=== PATIENT | female | born 1935 | race African-American/Black ===

== ENCOUNTER 2016-10-23 07:44 | Inpatient (IN) | payer OTHER ==
[~2016-10-23] VITALS: Ht 158.8 cm; Wt 68.2 kg
[~2016-10-23 07:44] MED LIST: ADULT LOW DOSE81 M1 PO; ELIQUIS5 MG PO; HYDROCHLOROTHIA25 MG PO; LABETALOL HCL100 MG PO; LOPRESSOR50 MG PO; NORVASC5 MG PO; PRAVASTATIN SOD20 MG PO; ZENPEP DR 10,01 EACH
[2016-10-23 08:44] LABS: HEMATOCRIT 38.9 % (36.0-46.0); MCH 30.7 PG (29.0-34.0); MCHC 34.4 G/DL (30.0-36.0); MEAN PLAT.VOLUME 11.1 uM^3 (9.5-12.4); PLATELET COUNT 204 K/uL (156-360); RBC DIS.WIDTH-CV 13.2 % (11.8-14.6); RBC DIS.WIDTH-SD 43.6 % (39-53); RED BLOOD COUNT 4.37 M/uL (3.80-5.20); WHITE BLOOD COUNT 13.8 K/uL (4.1-10.2)
[2016-10-23 08:53] LABS: CHLORIDE 105 mEq/L (99-109)
[2016-10-23 08:54] LABS: SODIUM 142 mEq/L (136-147)
[2016-10-23 08:56] LABS: GLUCOSE 184 mg/dL (70-99)
[2016-10-23 08:57] LABS: ANION GAP 15 MEQ/L (2-14)
[2016-10-23 08:58] LABS: TOTAL BILIRUBIN 1.1 mg/dL (0.0-1.0)
[2016-10-23 08:59] LABS: ALKALINE PHOSPHATASE 150 IU/L (3-129)
[2016-10-23 09:00] LABS: GFR ESTIMATE (CALCULATED) > 59 mL/min/
[2016-10-23 09:01] LABS: UREA NITROGEN (BUN) 16 mg/dL (9-23)
[2016-10-23 09:03] LABS: CREATINE KINASE 108 IU/L (1-294); LIPASE 34 U/L (1.0-51.0)
[2016-10-23 09:05] LABS: TROP-I INTERPRETATION NEGATIVE; TROPONIN-I < 0.01 ng/mL (0.0-0.30)
[2016-10-23 09:09] LABS: ADD MIUA? YES; BILIRUBIN NEGATIVE; BLOOD NEGATIVE; COLOR STRAW ((YELLOW)); GLUCOSE (STRIP) 150; KETONES 5; LEUKOCYTES NEGATIVE; NITRITE NEGATIVE; PROTEIN (STRIP) 100; SPECIFIC GRAVITY 1.009 (1.000-1.030); UROBILINOGEN 0.2 MG/DL (0.2-1.0)
[2016-10-23 09:20] LABS: BACTERIA NONE SEEN /HPF; EPITHELIAL CELLS RARE /HPF; MUCUS NONE SEEN /LPF; RED BLOOD CELLS 0-5 /HPF (0-5); UCUL ADDED? NO; WHITE BLOOD CELLS 0-5 /HPF (0-5)
[2016-10-23 15:43] VITALS: BP 151/73
[2016-10-23 20:43] VITALS: BP 144/72
[2016-10-23 23:47] VITALS: BP 169/113
[2016-10-24] VITALS (8 sets, daily range): BP systolic 121–196; BP diastolic 69–90
[2016-10-24 05:52] LABS: EOSINOPHIL (%) 0 % (0-5); HEMATOCRIT 46.3 % (36.0-46.0); IMMATURE GRANULOCYTE (%) 0.5 % (0.0-0.7); IMMATURE GRANULOCYTE COUNT 0.1 K/uL; INSTRUMENT ABS NEUTROPHIL CT 10.1 K/uL; LYMPHOCYTE COUNT 0.8 K/uL (1.0-2.8); MCH 30.3 PG (29.0-34.0); MCHC 34.3 G/DL (30.0-36.0); MCV 88.4 FL (83-99); MEAN PLAT.VOLUME 11.6 uM^3 (9.5-12.4); MONOCYTE (%) 7.6 % (3-12); MONOCYTE COUNT 0.9 K/uL (0-0.8); NEUTROPHIL (%) 84.8 % (45-76); NEUTROPHIL COUNT 10.1 K/uL (1.8-6.4); PLATELET COUNT 145 K/uL (156-360); RBC DIS.WIDTH-CV 13.9 % (11.8-14.6); RBC DIS.WIDTH-SD 44.7 % (39-53); RED BLOOD COUNT 5.24 M/uL (3.80-5.20); WHITE BLOOD COUNT 11.9 K/uL (4.1-10.2)
[2016-10-24 06:14] LABS: ANION GAP 15 MEQ/L (2-14); CHLORIDE 104 MEQ/L (99-109); GFR ESTIMATE (CALCULATED) > 59 mL/min/; GLUCOSE 97 mg/dL (70-99); POTASSIUM 3.7 MEQ/L (3.7-5.4); SAMPLE HEMOLYSIS CHECK 0; SAMPLE ICTERIC CHECK 0; SAMPLE LIPEMIA CHECK 0; SODIUM 142 MEQ/L (136-147); UREA NITROGEN (BUN) 15 mg/dL (9-23)
[2016-10-24 10:28] LABS: HEMATOCRIT 40.3 % (36.0-46.0); MCHC 34.5 G/DL (30.0-36.0); MEAN PLAT.VOLUME 11.4 uM^3 (9.5-12.4); PLATELET COUNT 222 K/uL (156-360); RBC DIS.WIDTH-CV 14.2 % (11.8-14.6); RBC DIS.WIDTH-SD 46.7 % (39-53); RED BLOOD COUNT 4.48 M/uL (3.80-5.20); WHITE BLOOD COUNT 10.9 K/uL (4.1-10.2)
[2016-10-25 06:05] VITALS: BP 196/91
[2016-10-25 07:47] LABS: HEMATOCRIT 39.9 % (36.0-46.0); MCH 31.6 PG (29.0-34.0); MCHC 34.6 G/DL (30.0-36.0); MCV 91.3 FL (83-99); MEAN PLAT.VOLUME 11.1 uM^3 (9.5-12.4); PLATELET COUNT 214 K/uL (156-360); RBC DIS.WIDTH-CV 14.5 % (11.8-14.6); RBC DIS.WIDTH-SD 48.7 % (39-53); RED BLOOD COUNT 4.37 M/uL (3.80-5.20)
[2016-10-25 07:53] VITALS: BP 143/76
[2016-10-25 08:20] LABS: ANION GAP 9 MEQ/L (2-14); CHLORIDE 108 MEQ/L (99-109); POTASSIUM 3.5 MEQ/L (3.7-5.4); SAMPLE HEMOLYSIS CHECK 0; SAMPLE ICTERIC CHECK 0; SAMPLE LIPEMIA CHECK 0; SODIUM 144 MEQ/L (136-147)
[2016-10-25 08:27] LABS: GFR ESTIMATE (CALCULATED) 51 mL/min/; GLUCOSE 93 mg/dL (70-99)
[2016-10-25 08:33] LABS: UREA NITROGEN (BUN) 23 mg/dL (9-23)
[2016-10-25 15:36] VITALS: BP 168/95
[2016-10-25 22:20] VITALS: BP 151/67
[2016-10-26 03:36] VITALS: BP 161/79
[2016-10-26 06:14] LABS: HEMATOCRIT 35.5 % (36.0-46.0); MCHC 33.2 G/DL (30.0-36.0); MCV 90.3 FL (83-99); MEAN PLAT.VOLUME 11.1 uM^3 (9.5-12.4); PLATELET COUNT 200 K/uL (156-360); RBC DIS.WIDTH-CV 14.2 % (11.8-14.6); RBC DIS.WIDTH-SD 47.5 % (39-53); RED BLOOD COUNT 3.93 M/uL (3.80-5.20); WHITE BLOOD COUNT 8.1 K/uL (4.1-10.2)
[2016-10-26 06:38] LABS: ANION GAP 10 MEQ/L (2-14); CHLORIDE 109 MEQ/L (99-109); GFR ESTIMATE (CALCULATED) > 59 mL/min/; GLUCOSE 90 mg/dL (70-99); POTASSIUM 3.8 MEQ/L (3.7-5.4); SAMPLE HEMOLYSIS CHECK 0; SAMPLE ICTERIC CHECK 0; SAMPLE LIPEMIA CHECK 0; SODIUM 142 MEQ/L (136-147); UREA NITROGEN (BUN) 21 mg/dL (9-23)
[2016-10-26 07:25] VITALS: BP 183/82
[2016-10-26] MEDS ORDERED: AMLODIPINE BESYL5 MG PO (14:52)
[2016-10-26 15:17] VITALS: BP 178/97
[2016-10-26 16:20] VITALS: BP 168/58
== END 2016-10-26 17:23 | DRG 872 ==
LOC: EME 07:44 → 5SOUTH 12:45 → EDOF 12:45 → CANRESERV 12:52 → ENRESERV 12:52 → EDOF 12:53 → CANRESERV 13:17 → ENRESERV 13:17 → EDOF 14:19 → 5SOUTH 15:17
PROVIDERS: Hospitalist; Nurse Practitioner Adult Health; Nurse Practitioner Family
DX: A41.9 Sepsis, unspecified organism (principal); E87.6 Hypokalemia; I10 Essential (primary) hypertension; I48.91 Unspecified atrial fibrillation; E87.2 Acidosis; E86.0 Dehydration; R68.0 Hypothermia, not associated with low environmental temperature; Z79.01 Long term (current) use of anticoagulants; E78.5 Hyperlipidemia, unspecified; R32 Unspecified urinary incontinence; I69.398 Other sequelae of cerebral infarction
CPT/HCPCS: 70450; 71010; 74177; 80048; 80053; 80202; 81003; 82550; 83605; 83690; 84484; 85025; 85027; 87040; 93005; 93306; 99281; 99285; J0360; J1885; J2060; J2405; J2543; J2765; J3370; J3480; J7030; J7050

== ENCOUNTER 2017-03-26 19:13 | Emergency (ER) | payer OTHER ==
[~2017-03-26] VITALS: Ht 170.2 cm; Wt 70.8 kg
[~2017-03-26 19:13] MED LIST changes: +AMLODIPINE BESYL5 MG PO
[2017-03-26 20:09] LABS: HEMATOCRIT 37.7 % (36.0-46.0); MCH 31.5 PG (29.0-34.0); MCHC 34.5 G/DL (30.0-36.0); MCV 91.3 FL (83-99); PLATELET COUNT 213 K/uL (156-360); RBC DIS.WIDTH-CV 13.5 % (11.8-14.6); RED BLOOD COUNT 4.13 M/uL (3.80-5.20); WHITE BLOOD COUNT 7.4 K/uL (4.1-10.2)
[2017-03-26 20:17] LABS: CHLORIDE 109 mEq/L (99-109); POTASSIUM 3.7 mEq/L (3.7-5.4); SODIUM 143 mEq/L (136-147)
[2017-03-26 20:19] LABS: GLUCOSE 90 mg/dL (70-99)
[2017-03-26 20:23] LABS: CREATININE 0.9 mg/dL (0.6-1.3); GFR ESTIMATE (CALCULATED) > 59 mL/min/
[2017-03-26 20:24] LABS: UREA NITROGEN (BUN) 24 mg/dL (9-23)
[2017-03-26 21:37] VITALS: BP 181/138
== END 2017-03-26 21:39 | disposition home or self-care (01) ==
LOC: EME 19:13
PROVIDERS: Emergency Medicine
DX: I10 Essential (primary) hypertension (principal); R51 Headache; E78.5 Hyperlipidemia, unspecified; I69.398 Other sequelae of cerebral infarction; F32.9 Major depressive disorder, single episode, unspecified; Z87.891 Personal history of nicotine dependence; Z85.9 Personal history of malignant neoplasm, unspecified; Z88.5 Allergy status to narcotic agent
CPT/HCPCS: 70450; 80048; 85027; 99281; 99285

== ENCOUNTER 2017-04-29 10:49 | Emergency (ER) | payer OTHER ==
[~2017-04-29] VITALS: Ht 165.1 cm; Wt 67.4 kg
[2017-04-29 12:37] LABS: HEMATOCRIT 42.3 % (36.0-46.0); MCH 31.5 PG (29.0-34.0); MCHC 35.5 G/DL (30.0-36.0); MCV 88.9 FL (83-99); PLATELET COUNT 209 K/uL (156-360); RBC DIS.WIDTH-CV 12.3 % (11.8-14.6); RBC DIS.WIDTH-SD 40.4 % (39-53); RED BLOOD COUNT 4.76 M/uL (3.80-5.20); WHITE BLOOD COUNT 11.9 K/uL (4.1-10.2)
[2017-04-29 12:57] LABS: TROP-I INTERPRETATION NEGATIVE; TROPONIN-I 0.01 ng/mL (0.0-0.30)
[2017-04-29 13:42] LABS: CHLORIDE 102 mEq/L (99-109); POTASSIUM 3.4 mEq/L (3.7-5.4); SODIUM 139 mEq/L (136-147)
[2017-04-29 13:44] LABS: GLUCOSE 98 mg/dL (70-99)
[2017-04-29 13:47] LABS: GFR ESTIMATE (CALCULATED) > 59 mL/min/
[2017-04-29 13:48] LABS: UREA NITROGEN (BUN) 16 mg/dL (9-23)
[2017-04-29] MEDS ORDERED: FLEXERIL10 MG PO (14:43)
[2017-04-29 15:14] VITALS: BP 147/98
== END 2017-04-29 15:18 | disposition home or self-care (01) ==
LOC: EME 10:49
PROVIDERS: Emergency Medicine
DX: I10 Essential (primary) hypertension (principal); M54.2 Cervicalgia; R51 Headache; E78.5 Hyperlipidemia, unspecified; F32.9 Major depressive disorder, single episode, unspecified; Z86.73 Personal history of transient ischemic attack (TIA), and cerebral infarction without residual deficits; Z87.891 Personal history of nicotine dependence; Z88.5 Allergy status to narcotic agent
CPT/HCPCS: 70450; 80048; 84484; 85027; 93005; 99281; 99284; J1200; J2765